=== PATIENT | male | born 1945 | race Caucasian/White ===

== ENCOUNTER → 2018-03-29 | Outpatient (CLI) | payer MEDICARE, OTHER ==
--- NOTE | 2018-03-29 17:48 | PN ---
PROGRESS NOTE DATE OF SERVICE: 03/29/2018. 72-year-old gentleman has been followed in the [facility] for treatment of obstructive sleep apnea-hypopnea syndrome. The patient continued to use his BiPAP equipment every night but complains that because the pressure is high, he has to tie his mask significantly and that creates some discomfort for him. [place] Sleepiness Scale today increased to 15. I checked his BiPAP unit. BiPAP pressure is 18/14 cm of water. Leak is 24 L/minute. Usage is 100% of the night for the 6 months using 180/180 nights with usage 7 hours. For the 6 months, Apnea-hypopnea index 4.0. For the last months apnea-hypopnea index 2.5. [place] Sleepiness Scale today is 15. MEDICATIONS: Multivitamins. PHYSICAL EXAM: GENERAL: Patient is on wheelchair. VITAL SIGNS: BP 166/74, HR 70, RR 14, height 5 feet 6 inches, temperature 98.0, oxygen saturation room air 97%. HEENT: Oropharynx practically normal position of soft palate. During physical exam no left leg. The patient is on power wheelchair. Neck Supple, no JVD. Thyroid is not palpable. LUNGS Clear to percussion and to auscultation. Good air exchange. No wheezing or rhonchi. HEART S1, S2 regular. No murmurs, gallops, or rubs. ABDOMEN Soft and nontender. Bowel sounds are present. No organomegaly appreciated. EXTREMITIES: No left leg. PROPELLANT CHARGE ZONE ASSEMBLER Awake, alert, and oriented X3. Cranial nerves 2 to 7 intact. There is no fasciculation or atrophy. noted. No focal deficits observed. The physical examination normal VS: Template. IMPRESSION: 1. Obstructive sleep apnea-hypopnea syndrome. Patient demonstrated 100% compliance with treatment benefitting from treatment. 2. 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 3. Status post trauma of right leg. 4. Status post bowel resection for obstruction. PLAN: 1. I will change pressure down to 16/12 cm of water. 2. Patient will continue to use BiPAP equipment every night for the whole night. 3. Prescription for all necessary BiPAP supplies including mask, tube, filters. Thank you very much for allowing me to participate in management of your patient. Sincerely, Panda Vital MD, PhD, FAASM Diplomat of [employer] Inspector And Unloader of [facility] [place] MMODL / DONNN: [phone] /
== END | disposition home or self-care (01) ==
LOC: SLEEP 14:51
PROVIDERS: ATTEND Internal Medicine
DX: G47.33 Obstructive sleep apnea (adult) (pediatric) (principal); S89.91XA Unspecified injury of right lower leg, initial encounter; Z99.89 Dependence on other enabling machines and devices; Z89.612 Acquired absence of left leg above knee; Z98.890 Other specified postprocedural states; Z79.899 Other long term (current) drug therapy

== ENCOUNTER → 2020-04-09 | Outpatient (CLI) | payer MEDICARE, OTHER ==
--- NOTE | 2020-04-09 16:11 | SFUN ---
SLEEP CENTER FOLLOW UP NOTE DATE OF SERVICE: 04/09/2020 This patient is a 74-year-old gentleman who has been followed in Sleep Center for treatment of obstructive sleep apnea-hypopnea syndrome. The patient was not seen in the sleep clinic for more than 2 years. He continues to use his BiPAP equipment. Recently he has felt that the pressure is too high, and he made a hole in his CPAP mask to decrease the pressure. At the same time, he does not use any RAMP at all when he is starting to use the BiPAP. [place] Sleepiness Scale today is only 3. I checked his BiPAP unit. Pressure is 14/10. Usage is 100% of nights, with average usage 7.1 hours per night. Very high leak at 67 L/minute. Apnea-hypopnea index is in normal range at 3.7. MEDICATIONS: Multivitamins. PHYSICAL EXAMINATION: GENERAL: A pleasant patient in no distress. VITAL SIGNS: BP 176/85, HR 86, RR 15, weight 117.4, temperature 98.3, oxygen saturation at room air 98%. The patient is in an electric wheelchair. HEENT: PERRLA, EOMI. Evaluation of oropharynx showed tongue protrudes midline. NECK: Supple. No JVD. Thyroid is not palpable. LUNGS: Clear to percussion and to auscultation. Good air exchange. No wheezing or rhonchi. HEART: S1, S2 regular. No murmurs, gallops or rubs. ABDOMEN: Soft, nontender. No organomegaly. Bowel sounds are heard in all four quadrants. EXTREMITIES: No left leg. SIGNAL CIRCUIT DESIGNER: Awake, alert, and oriented X3. Cranial nerves 2 to 7 intact. There is no fasciculation or atrophy. noted. No focal deficits observed. IMPRESSION: 1. Obstructive sleep apnea-hypopnea syndrome. Patient demonstrated 100% compliance with treatment, benefitting from treatment. 2. Status post amputation of left leg and the upper third of hip. 3. Status post trauma of right leg. 4. Status post bowel resection for obstruction. PLAN: 1. I changed regimen of the machine to automatic with maximal inspiratory pressure of 14 and minimal expiratory pressure of 4, keeping pressure support of 4 cm of water. 2. Patient will continue to use PAP equipment every night for the whole night. 3. Sleep hygiene with regular time in bed for at least 7-1/2 to 8 hours. 4. Precautions related to driving. No driving if feeling sleepiness. 5. I will maintain all necessary prescription for PAP supplies including mask, tube, filters. 6. Watching weight. 7. No driving if feeling sleepiness. 8. Follow-up visit in 6 months or earlier if patient has any problems. Thank you very much for allowing me to participate in the management of your patient. Sincerely, Panda Vital MD, PhD, FAASM Diplomat of [employer] [employer] Portfolio Manager of [facility] [place] MMODL / IJN: [id number] /
== END | disposition home or self-care (01) ==
LOC: SLEEP 09:49
PROVIDERS: ATTEND Internal Medicine
DX: G47.33 Obstructive sleep apnea (adult) (pediatric) (principal); Z99.89 Dependence on other enabling machines and devices; Z79.899 Other long term (current) drug therapy; Z89.612 Acquired absence of left leg above knee; Z87.39 Personal history of other diseases of the musculoskeletal system and connective tissue; Z98.890 Other specified postprocedural states

== ENCOUNTER → 2022-02-23 | Outpatient (CLI) | payer MEDICARE, OTHER | END | disposition home or self-care (01) | LOC: LABWHC1 16:17 | PROVIDERS: ATTEND Ophthalmology | DX: E11.9 Type 2 diabetes mellitus without complications (principal) | CPT/HCPCS: 36415; 83036 ==